=== PATIENT | female | born 1985 | race Caucasian/White ===

== ENCOUNTER 2024-03-21 23:38 | Emergency (ER) | payer MEDICAID ==
[~2024-03-21] VITALS: Ht 172.7 cm; Wt 75.2 kg
[2024-03-21 23:48] VITALS: TEMP 97.9
[2024-03-21 23:54] LABS: BASOPHILS # (AUTO) 0.1 X10'3 (0-0.2); BASOPHILS % (AUTO) 0.9 % (0-1); EOSINOPHILS % (AUTO) 0.2 % (0-6); HEMATOCRIT 41.7 % (35.0-45.0); HEMOGLOBIN 14.2 g/dl (12.0-16.0); LYMPHOCYTES # (AUTO) 1.1 X10'3 (1.1-4.8); MEAN CORPUSCULAR HEMOGLOBIN 32.5 PG (27.0-31.0); MEAN CORPUSCULAR HGB CONC 34.1 g/dL (33.0-36.5); MEAN CORPUSCULAR VOLUME 95.3 FL (78-98); MEAN PLATELET VOLUME 7.5 FL (7.4-10.4); MONOCYTES # (AUTO) 0.3 X10'3 (0-0.9); MONOCYTES % (AUTO) 4.7 % (2-12); NEUTROPHILS # (AUTO) 4.8 X10'3 (1.8-7.7); NEUTROPHILS % (AUTO) 76.2 % (42-75); PLATELET COUNT 260 X10'3 (140-440); RED BLOOD COUNT 4.38 X10'6 (4.20-5.60); RED CELL DISTRIBUTION WIDTH 13.4 % (11.5-14.5); WHITE BLOOD COUNT 6.3 X10'3 (4.5-11.0)
[2024-03-22 00:08] LABS: ALANINE AMINOTRANSFERASE 20 U/L (12-78); ALBUMIN 3.8 G/DL (3.4-5.0); ALBUMIN/GLOBULIN RATIO 1.2 (1.1-1.5); ALKALINE PHOSPHATASE 69 IU/L (46-116); ANION GAP 6 (8-16); ASPARTATE AMINO TRANSFERASE 21 U/L (10-37); BILIRUBIN,TOTAL 0.5 MG/DL (0.1-1.0); BLOOD UREA NITROGEN 8 MG/DL (7-18); BUN/CREATININE RATIO 8.3 (10.0-20.0); CALCIUM 8.4 MG/DL (8.5-10.1); CHLORIDE 102 MMOL/L (99-107); CREATININE 0.96 MG/DL (0.40-0.90); GLUCOSE 126 MG/DL (70-104); POTASSIUM 3.9 MMOL/L (3.5-5.1); SODIUM 136 MMOL/L (135-145); TOTAL PROTEIN 7.1 G/DL (6.4-8.2); eCRCL 81 ML/MIN; eGFR 65 ML/MIN
[2024-03-22 00:16] LABS: PRO BRAIN NATRIURETIC PEPTIDE 86 PG/ML (0-125)
[2024-03-22] MEDS: famotidine 20mg tablet PO ONE (02:59)
[2024-03-22 03:05] VITALS: BP 118/84; PULSE 109; RESP 16; O2SAT 98
== END 2024-03-22 03:08 | disposition home or self-care (01) ==
LOC: ER 23:39
DX: R07.89 Other chest pain (principal); R00.0 Tachycardia, unspecified
CPT/HCPCS: 36415; 71045; 80053; 83880; 84484; 85025; 93005; 99285

== ENCOUNTER 2024-04-02 22:10 | Emergency (ER) | payer MEDICAID ==
[~2024-04-02] VITALS: Ht 170.2 cm; Wt 76.4 kg
[2024-04-02] MEDS: OLANZapine 5mg rapidly disint. tablet PO ONE (22:53)
[2024-04-02] MEDS: LORazepam 1 MG tablet PO ONE (22:54)
[2024-04-02] MEDS: divalproex sod 250mg ER (24-hour) tablet PO SCH (22:54)
[2024-04-02] MEDS: buPROPion 100mg tablet PO SCH (22:55)
[2024-04-02 23:04] LABS: BASOPHILS # (AUTO) 0.1 X10'3 (0-0.2); BASOPHILS % (AUTO) 0.7 % (0-1); EOSINOPHILS % (AUTO) 0.1 % (0-6); HEMATOCRIT 40.1 % (35.0-45.0); HEMOGLOBIN 13.5 g/dl (12.0-16.0); LYMPHOCYTES # (AUTO) 1.9 X10'3 (1.1-4.8); MEAN CORPUSCULAR HEMOGLOBIN 32.4 PG (27.0-31.0); MEAN CORPUSCULAR HGB CONC 33.7 g/dL (33.0-36.5); MEAN CORPUSCULAR VOLUME 96.1 FL (78-98); MEAN PLATELET VOLUME 7.5 FL (7.4-10.4); MONOCYTES # (AUTO) 0.5 X10'3 (0-0.9); MONOCYTES % (AUTO) 6.1 % (2-12); NEUTROPHILS # (AUTO) 5.7 X10'3 (1.8-7.7); NEUTROPHILS % (AUTO) 70.1 % (42-75); PLATELET COUNT 339 X10'3 (140-440); RED BLOOD COUNT 4.18 X10'6 (4.20-5.60); RED CELL DISTRIBUTION WIDTH 13.7 % (11.5-14.5); WHITE BLOOD COUNT 8.1 X10'3 (4.5-11.0)
[2024-04-02 23:22] LABS: ACETAMINOPHEN < 2.0 UG/ML (10-30); ALBUMIN 3.5 G/DL (3.4-5.0); ANION GAP 8 (8-16); BLOOD UREA NITROGEN 10 MG/DL (7-18); BUN/CREATININE RATIO 13.5 (10.0-20.0); CALCIUM 8.8 MG/DL (8.5-10.1); CHLORIDE 107 MMOL/L (99-107); CREATININE 0.74 MG/DL (0.40-0.90); ETHANOL < 10 MG/DL (<10); GLUCOSE 117 MG/DL (70-104); POTASSIUM 3.7 MMOL/L (3.5-5.1); SALICYLATE 0.7 MG/DL (4.0-20.0); SODIUM 141 MMOL/L (135-145); TOTAL CARBON DIOXIDE 25.7 MMOL/L (24-32); eCRCL 101 ML/MIN; eGFR 88 ML/MIN
[2024-04-02 23:24] LABS: VALPROATE < 3.0 UG/ML (50-100)
[2024-04-03 01:35] VITALS: BP 138/82; PULSE 84; RESP 16; TEMP 98.6; O2SAT 98
[2024-04-04] MEDS ORDERED: DIVA500T9 (10:40)
[2024-04-04] MEDS ORDERED: NICO-687 TOP (10:40)
[2024-04-04] MEDS ORDERED: TRAZ-251 PO (10:40)
[2024-04-04] MEDS ORDERED: PROP20TA6 PO (10:40)
[2024-04-04] MEDS ORDERED: LUMA42CA PO (10:40)
[2024-04-04] MEDS ORDERED: BUPR-564 PO (10:40)
== END 2024-04-03 01:37 | disposition home or self-care (01) ==
LOC: ER 22:11
DX: F22 Delusional disorders (principal); F41.9 Anxiety disorder, unspecified; Z91.148 Patient's other noncompliance with medication regimen for other reason; Z91.040 Latex allergy status
CPT/HCPCS: 36415; 80048; 80164; 80320; 80329; 84443; 85025; 99284

== ENCOUNTER 2024-04-03 23:56 | Emergency (ER) | payer MEDICAID ==
[~2024-04-03] VITALS: Ht 170.2 cm; Wt 74.5 kg
[2024-04-04] MEDS: LORazepam 2 mg/ml vial IM ONE (00:50)
[2024-04-04] MEDS: diphenhydrAMINE 50 mg/ml inj IM ONE (01:02)
[2024-04-04] MEDS: haloperidol lactate 5mg/ml inj IM ONE (01:03)
[2024-04-04 01:35] LABS: BASOPHILS # (AUTO) 0.1 X10'3 (0-0.2); BASOPHILS % (AUTO) 0.9 % (0-1); EOSINOPHILS % (AUTO) 0.1 % (0-6); HEMATOCRIT 39.8 % (35.0-45.0); HEMOGLOBIN 13.7 g/dl (12.0-16.0); LYMPHOCYTES # (AUTO) 1.5 X10'3 (1.1-4.8); LYMPHOCYTES % (AUTO) 23.7 % (21-51); MEAN CORPUSCULAR HEMOGLOBIN 32.5 PG (27.0-31.0); MEAN CORPUSCULAR HGB CONC 34.4 g/dL (33.0-36.5); MEAN CORPUSCULAR VOLUME 94.4 FL (78-98); MONOCYTES # (AUTO) 0.4 X10'3 (0-0.9); MONOCYTES % (AUTO) 6.2 % (2-12); NEUTROPHILS # (AUTO) 4.5 X10'3 (1.8-7.7); NEUTROPHILS % (AUTO) 69.1 % (42-75); PLATELET COUNT 317 X10'3 (140-440); RED BLOOD COUNT 4.22 X10'6 (4.20-5.60); RED CELL DISTRIBUTION WIDTH 13.5 % (11.5-14.5); WHITE BLOOD COUNT 6.4 X10'3 (4.5-11.0)
[2024-04-04 01:56] LABS: ALBUMIN 3.7 G/DL (3.4-5.0); ANION GAP 9 (8-16); BLOOD UREA NITROGEN 10 MG/DL (7-18); BUN/CREATININE RATIO 10.5 (10.0-20.0); CALCIUM 8.7 MG/DL (8.5-10.1); CHLORIDE 105 MMOL/L (99-107); CREATININE 0.95 MG/DL (0.40-0.90); GLUCOSE 120 MG/DL (70-104); SODIUM 141 MMOL/L (135-145); THYROID STIMULATING HORMONE 1.33 ulU/ml (0.34-4.50); TOTAL CARBON DIOXIDE 27.2 MMOL/L (24-32); eCRCL 79 ML/MIN; eGFR 66 ML/MIN
[2024-04-04 02:08] LABS: ETHANOL < 10 MG/DL (<10)
[2024-04-04] MEDS: potassium Cl 20 mEq SR tablet PO STA (02:22)
[2024-04-04 08:49] LABS: URINE HCG NEGATIVE (NEG)
[2024-04-04 08:51] LABS: BILIRUBIN,URINE SMALL (Neg); CLARITY,URINE CLOUDY (Clear); COLOR,URINE YELLOW (Yellow); GLUCOSE, URINE NEGATIVE (Neg); KETONES,URINE 15 mg/dl (Neg); LEUKOCYTE ESTERASE ,URINE NEGATIVE (Neg); OCCULT BLOOD,URINE NEGATIVE (Neg); PROTEIN,URINE 30 mg/dl (Neg)
[2024-04-04 08:53] LABS: NITRITES, URINE NEGATIVE (Neg); UA COLLECTION TYPE NON-SPECIFIED
[2024-04-04 08:58] LABS: MUCUS STRANDS MANY /LPF (Neg); SQUAMOUS EPITHELIAL CELL,UR MANY /LPF (FEW)
[2024-04-04 08:59] LABS: RBC,URINE 0-2 /HPF (0-2)
[2024-04-04 09:00] LABS: BACTERIA,URINE 2+ /HPF (Neg); TRANSITIONAL EPI CELLS,URINE FEW /HPF
[2024-04-04 09:05] LABS: URINE AMPHETAMINE SCREEN POSITIVE (Neg); URINE BARBITUATE SCREEN NEGATIVE (Neg); URINE BENZODIAZEPINES SCREEN NEGATIVE (Neg); URINE CANNABINOID SCREEN NEGATIVE (Neg); URINE COCAINE SCREEN NEGATIVE (Neg); URINE METHADONE SCREEN NEGATIVE (Neg); URINE OPIATE SCREEN NEGATIVE (Neg); URINE PHENCYCLIDINE SCREEN NEGATIVE (Neg)
[2024-04-04] MEDS ORDERED: NICO-687 TOP (10:40)
[2024-04-04] MEDS ORDERED: TRAZ-251 PO (10:40)
[2024-04-04] MEDS ORDERED: DIVA500T9 (10:40)
[2024-04-04] MEDS ORDERED: LUMA42CA PO (10:40)
[2024-04-04] MEDS ORDERED: PROP20TA6 PO (10:40)
[2024-04-04] MEDS ORDERED: BUPR-564 PO (10:40)
[2024-04-04] MEDS: divalproex sod 250mg ER (24-hour) tablet PO ONE (10:54)
[2024-04-04] MEDS: nicotine 21mg patch - 24 hr TD ONE (10:55)
[2024-04-04] MEDS ORDERED: propranolol 10mg tablet PO PRN (11:00)
[2024-04-04 11:48] VITALS: BP 141/87; PULSE 114; RESP 18; TEMP 98.6; O2SAT 98
[2024-04-04] MEDS ORDERED: traZODone 50mg tablet PO SCH (21:00)
[2024-04-04] MEDS ORDERED: BUPROPION HCL 150MG XL 24 HR 150 MG TAB PO SCH (21:00)
[2024-04-04] MEDS ORDERED: LUMATEPERONE TOSYLATE PO SCH (21:00)
[2024-04-05] MEDS ORDERED: divalproex sod 250mg ER (24-hour) tablet PO SCH (08:00)
[2024-04-05] MEDS ORDERED: nicotine 21mg patch - 24 hr TD SCH (08:00)
== END 2024-04-04 12:03 | disposition home or self-care (01) ==
LOC: ER 23:56
DX: F29 Unspecified psychosis not due to a substance or known physiological condition (principal); Z20.822 Contact with and (suspected) exposure to COVID-19; F41.0 Panic disorder [episodic paroxysmal anxiety]; Z91.148 Patient's other noncompliance with medication regimen for other reason; Z91.040 Latex allergy status; Z79.899 Other long term (current) drug therapy
CPT/HCPCS: 36415; 80048; 80305; 80320; 81001; 81025; 84443; 85025; 87811; 96372; 99284; J1200; J1630; J2060